=== PATIENT | female | born 1950 | race Caucasian/White ===

== ENCOUNTER 2017-09-05 11:59 | Emergency (ER) | payer MEDICARE ==
[2017-09-05 12:33] LABS: BASOPHILS 0.2 % (0-2); EOSINOPHILS 1.9 % (0-7); HEMATOCRIT 42.5 % (36.0-48.0); HEMOGLOBIN 13.9 g/dL (12-16); IMMATURE GRANULOCYTES 0.2 % (0-5); LYMPHOCYTES 24.2 % (15-50); MCH 29.5 pg (26.0-34.0); MCHC 32.7 g/dL (31.0-37.0); MCV 90.2 fL (80.0-100.0); MEAN PLATELET VOLUME 10.2 fL (7.4-10.4); MONOCYTES 6.2 % (2-11); NEUTROPHILS 67.3 % (40-80); PLATELET COUNT 303 10x3/uL (130-400); RBC 4.71 10x6/uL (4.00-5.40); RDW 13.8 % (11.5-14.5); WBC 8.9 10x3/uL (4.8-10.8)
[2017-09-05 12:55] LABS: ALBUMIN 3.5 g/dL (3.4-5.0); ALKALINE PHOSPHATASE 61 U/L (46-116); ALT (SGPT) 23 U/L (10-68); BILIRUBIN - TOTAL 0.46 mg/dL (0.2-1.3); CALC OSMOLALITY 291 mosm/kg (275-300); CALCIUM 9.3 mg/dL (8.5-10.1); CARBON DIOXIDE 27.5 mmol/L (21.0-32.0); CHLORIDE - SERUM 101 mmol/L (98-107); CREATININE - SERUM 1.1 mg/dL (0.6-1.3); GLUCOSE 378 mg/dL (74-106); POTASSIUM - SERUM 3.9 mmol/L (3.5-5.1); SODIUM 138 mmol/L (136-145); UREA NITROGEN 13 mg/dL (7-18); eGFR NON AFRICAN AMERICAN 52 mL/min (90-120)
[2017-09-05 12:57] LABS: PRO BNP 250 pg/mL (0-125)
[2017-09-05 12:59] LABS: TROPONIN-I < 0.017 ng/mL (0.000-0.060)
== END 2017-09-05 16:31 | disposition home or self-care (01) ==
LOC: D.ER 11:59
PROVIDERS: Family Medicine
DX: J44.1 Chronic obstructive pulmonary disease with (acute) exacerbation (principal); I10 Essential (primary) hypertension; E11.9 Type 2 diabetes mellitus without complications

== ENCOUNTER 2017-12-12 11:07 | Inpatient (IN) | payer MEDICARE, OTHER ==
[~2017-12-12] VITALS: Ht 162.6 cm; Wt 75.9 kg
--- NOTE | ~2017-12-12 | EC ---
PATIENT:BASILIO LEHMAN DATE OF SERVICE: 12/12/17 SEX: F MEDICAL RECORD: [id number] DATE OF : 46 LOCATION:[facility] AGE OF PATIENT: 66 ADMISSION DATE: 12/12/17 REFERRING PHYSICIAN: INTERPRETING PHYSICIAN: JUAREZ CACERES MD ECHOCARDIOGRAM REPORT ECHO CHARGES 4 ECHO COMPLETE Date: 12/13 CLINICAL DIAGNOSIS: R CVA ECHOCARDIOGRAPHIC MEASUREMENTS (adult normal given) AC root (d.<3.7cm) 2.7 cm LV Septum d (<1.2 cm> 1.6 cm Valve Excursion 1.5 cm LV Septum (systole) 1.7 cm Left Atria (s.<4.0cm> 3.1 cm LVPW d(<1.2cm) 1.7 cm RV (d.<2.3cm) 3.2 cm LVPW (sytole) 1.9 cm LV diastole(<5.6CM) 4.9 cm MV E-F(>70mm/sec) cm LV systole 3.1 cm LVOT Diameter cm MV exc.(>10mm) cm Est.ejection fraction (50-75%) % DOPPLER: LVIT cm/sec A 114 cm/sec E 69.0 cm/sec LA cm/sec RVSP 32 mmHg LVOT 160 cm/sec AOP1/2T m/s Asc. Ao 197 cm/sec RVOT cm/sec RA cm/sec PA cm/sec AV Gradient Peak 15.45mmHg AV Mean 9.82 mmHg AV Area 2.0 cm MV Gradient Peak 5.52 mmHg MV Mean 2.41 mmHg MV Area cm COMMENTS: Senior Php Developer: Tere GALEANA Clinical Social Work Therapist: 1 Dr. Caceres TAPE# PACS Pericardial Effusion N DATE OF SERVICE: PROCEDURE: Echocardiogram. FINDINGS: 1. Left ventricle chamber size is within normal limits. Left ventricular systolic function is normal. Overall ejection fraction estimated at 60%. 2. Left atrium, right atrium, and right ventricle chamber sizes are within normal limits. 3. Valvular structures have normal structure and motion. ECHOCARDIOGRAM REPORT [id number] BASILIO LEHMAN 4. Doppler interrogation reveals mild tricuspid regurgitation, no other valvular insufficiency or stenosis and pulmonary systolic pressure is normal estimated 32 mmHg. 5. No evidence of pericardial effusion or left ventricular thrombus. TRANSINT:[id number] Voice Confirmation ID: [id number] DOCUMENT ID: [id number] JUAREZ CACERES MD at 1351 CC: [id number] DICTATION DATE: 12/14/17 1126 RESTAURANT COOK: 12/14/17 1352 DIS IN 12/14/17 [facility] [address] [place] [address]
--- NOTE | ~2017-12-12 | HP ---
PATIENT: BASILIO LEHMAN MEDICAL RECORD: [id number] ACCOUNT: [id number] LOCATION:[facility] : 46 ADMISSION DATE: 12/12/17 HISTORY AND PHYSICAL EXAMINATION DATE OF ADMISSION: 12/17/2017. CHIEF COMPLAINT: Left-sided weakness. HISTORY OF PRESENT ILLNESS: The patient is a 66-year-old female who states she was at home yesterday when she fell 5 times. She feels like she may have hurt her low back. She denies any trauma. She does have some weakness in the left upper arm as well. PAST MEDICAL HISTORY: Significant that she has had diabetes mellitus. She has also had depression. She had breast cancer, has had diabetes mellitus and hypertension. MEDICATIONS: Include aspirin 325 mg once a day, Cartia 240 mg once a day, Coreg 25 p.o. b.i.d., glipizide 10 mg p.o. every day, hydrochlorothiazide 12.5 once a day, metformin 1000 mg b.i.d. with 500 mg at noon, Mirapex 0.125 p.o. q.h.s., ranitidine 150 mg b.i.d. ALLERGIES: DARVOCET, MOTRIN, TETANUS, TUBERCULIN. FAMILY HISTORY: Mother had lung cancer as well as father having lung cancer. Sister, breast cancer. Father had arteriosclerotic heart disease. 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 She stopped smoking 1 year ago. REVIEW OF SYSTEMS: CONSTITUTIONAL: She denies any headaches, seizure or syncope. HEENT: She denies change in vision or auditory acuity. PULMONARY: shortness of breath, cough, congestion, history of bronchitis. CARDIOVASCULAR: No chest pain, palpitation, PND, or orthopnea. GASTROINTESTINAL: No chronic nausea, vomiting, melena, or hematochezia. GENITOURINARY: No urgency, frequency, or dysuria. PHYSICAL EXAMINATION: VITAL SIGNS: Today, her weight is 163. Her blood pressure is 126/68, pulse 64, respirations 12, temperature is 97. HEENT: Head is normocephalic. No lesions. Ears: TMs clear. Eyes: Pupils equal, round and react to light. Extraocular movements are intact. Her nasal cavity, oral cavity, oropharynx clear. NECK: Supple. There is no adenopathy. HEART: Has a regular rate. LUNGS: Clear. ABDOMEN: Soft. The bowel sounds are positive. NEUROLOGIC: The patient does have some left-sided facial weakness with some decreased muscle strength in the left upper extremity. She does have difficulty with tandem gait, [id number] is somewhat uncoordinated on the left. ASSESSMENT: 1. Probable right CVA. HISTORY AND PHYSICAL [id number] BASILIO LEHMAN 2. History of diabetes, hypertension, hyperlipidemia, history of breast cancer. PLAN: The patient will be admitted. She will have a cranial CT without contrast, also an echocardiogram as well as carotid Doppler. The patient will be placed on Plavix 75 mg once a day. Continue to evaluate. TRANSINT:[id number] Voice Confirmation ID: [id number] DOCUMENT ID: [id number] THU ARZOLA MD at 0643 CC: [id number] DICTATION DATE: 12/12/17 1201 RESTAURANT HOSPITALITY MANAGER: 12/12/17 1220 ADM IN [place] [id number] [place] [id number]
--- NOTE | ~2017-12-12 | DS ---
PATIENT:BASILIO LEHMAN :46 MEDICAL RECORD: [id number] DISCHARGE SUMMARY ADMISSION DATE: 12/12/17 DISCHARGE DATE: 12/14/17 DATE OF ADMISSION: 12/12/2017 DATE OF DISCHARGE: 12/14/2017 CONDITION ON DISCHARGE: Stable. ADMITTING DIAGNOSES: 1. Probable right cerebrovascular accident. 2. History of hypertension. 3. Hyperlipidemia. 4. Breast cancer. 5. History of diabetes mellitus. DISCHARGE DIAGNOSES: Malignant brain neoplasm, hypertension, type 2 diabetes, history of breast cancer with bilateral mastectomy. CONSULTANTS: Dr. Maurizio Sandoval. HISTORY OF PRESENT ILLNESS: The patient is a 67-year-old female. The patient presented to my office. She stated that she had fallen 5 times at home on the day prior to her admission, she complained of some low back pain. PHYSICAL EXAMINATION: VITAL SIGNS: She was afebrile, vital signs stable. HEENT: Unremarkable. NECK: Supple. There is no adenopathy. HEART: Regular. LUNGS: Clear. The patient did have some weakness in the left upper extremity as well as left lower extremity, it was felt the patient may have had a TIA or CVA. The patient was therefore admitted. CT scan of the head did not reveal a CVA but did reveal multiple indeterminate intracranial lesions versus infection or abscess. She had an MRI of the brain, MRI of the brain revealed a rim-enhancing lesion of the right basal ganglia as well as a right frontal lobe. They were indeterminate but worrisome for metastatic disease. She has subtle enhancement in the left aspect of the corpus callosum on the frontal lobe white matter. Chest CT scan revealed no evidence of malignancy or masses. Abdominopelvic CT scan unremarkable. Chest x-ray was unremarkable. She was seen in consultation by Dr. Najera, her oncologist as well as Dr. Sandoval. Dr. Sandoval felt that the patient felt the patient could be discharged home, therefore bringing her back so that she might undergo a craniotomy to determine further treatment. She was placed on Decadron to decrease some of the intracranial edema. Therefore, on 12/14/2017, she was discharged. DISCHARGE MEDICATIONS: Include hydrochlorothiazide 12.5 once a day, aspirin 81 mg once a day, Tiazac 240 mg once a day, metformin 1000 mg b.i.d. and 500 mg at noon, Mirapex 0.125 p.o. bedtime, Zantac 150 mg b.i.d., Coreg 12.5 mg p.o. b.i.d., Medrol Dosepak. FOLLOWUP: She was to follow up with me on December 26, she was also to follow up DISCHARGE SUMMARY REPORT [id number] BASILIO LEHMAN with Dr. Sandoval within 10 days. TRANSINT:[id number] Voice Confirmation ID: [id number] DOCUMENT ID: [id number] THU ARZOLA MD at 0701 CC: [id number] DICTATION DATE: 01/22/18 1520 ADVERTISEMENT COMPOSITOR: 01/22/18 2352 DIS IN 12/14/17 [place] [id number] [place] [id number]
[2017-12-12 12:16] LABS: ALBUMIN 3.9 g/dL (3.4-5.0); ANION GAP 13.9 mmol/L (8-16); BILIRUBIN - TOTAL 0.59 mg/dL (0.2-1.3); CALCIUM 9.2 mg/dL (8.5-10.1); CARBON DIOXIDE 25.2 mmol/L (21.0-32.0); POTASSIUM - SERUM 4.1 mmol/L (3.5-5.1); PROTEIN - SERUM 7.5 g/dL (6.4-8.2)
[2017-12-12 12:26] LABS: BASOPHILS 0.4 % (0-2); EOSINOPHILS 2.1 % (0-7); HEMATOCRIT 41.9 % (36.0-48.0); IMMATURE GRANULOCYTES 0.3 % (0-5); LYMPHOCYTES 35.4 % (15-50); MCHC 33.4 g/dL (31.0-37.0); MCV 89.9 fL (80.0-100.0); MEAN PLATELET VOLUME 10.9 fL (7.4-10.4); MONOCYTES 6.8 % (2-11); PLATELET COUNT 292 10x3/uL (130-400); RBC 4.66 10x6/uL (4.00-5.40); RDW 13.9 % (11.5-14.5); WBC 7.7 10x3/uL (4.8-10.8)
[2017-12-12 12:36] LABS: INR 0.95 (0.85-1.17); PROTIME 12.3 SECONDS (11.6-15.0)
[2017-12-12 12:50] LABS: APPEARANCE HAZY (CLEAR); BACTERIA MANY /hpf (NONE SEEN); BILIRUBIN NEGATIVE (NEGATIVE); COLOR DK YELLOW (YELLOW); GLUCOSE NEGATIVE (NEGATIVE); KETONE NEGATIVE (NEGATIVE); MUCUS <1+ /lpf (NONE SEEN); NITRITE NEGATIVE (NEGATIVE); PROTEIN NEGATIVE (NEGATIVE); SPECIFIC GRAVITY 1.025 (1.005-1.020); UROBILINOGEN NORMAL (NORMAL); WAXY CAST 0-5 /lpf (NONE SEEN)
[2017-12-12] MEDS ORDERED: HYDROCHLOROTH12.5 M1 PO (17:29)
[2017-12-12] MEDS ORDERED: TIAZAC/CARDIZE240 M1 PO (17:30)
[2017-12-12] MEDS ORDERED: BAYER CHEWABLE81 MG PO (17:30)
[2017-12-12] MEDS ORDERED: GLUCOPHAGE500 MG PO (17:31)
[2017-12-12] MEDS ORDERED: MIRAPEX0.125 MG PO (17:31)
[2017-12-12] MEDS ORDERED: GLUCOPHAGE1000 MG PO (17:31)
[2017-12-12] MEDS ORDERED: ZANTAC150 MG PO (17:32)
[2017-12-12] MEDS ORDERED: COREG12.5 MG PO (17:32)
[2017-12-12] MEDS ORDERED: CALCIUM 600 +1 EAC3 PO (17:33)
[2017-12-12] MEDS ORDERED: VITAMIN D31000 UNIT PO (17:33)
[2017-12-12 20:00] VITALS: BP 118/59
[2017-12-13 04:00] VITALS: BP 112/73
[2017-12-13 06:02] LABS: BASOPHILS 0.5 % (0-2); EOSINOPHILS 0.5 % (0-7); HEMATOCRIT 40.5 % (36.0-48.0); HEMOGLOBIN 13.2 g/dL (12-16); IMMATURE GRANULOCYTES 0.2 % (0-5); LYMPHOCYTES 22.5 % (15-50); MCHC 32.6 g/dL (31.0-37.0); MEAN PLATELET VOLUME 10.7 fL (7.4-10.4); MONOCYTES 2.7 % (2-11); NEUTROPHILS 73.6 % (40-80); PLATELET COUNT 255 10x3/uL (130-400); RBC 4.55 10x6/uL (4.00-5.40); RDW 13.8 % (11.5-14.5)
[2017-12-13 06:13] LABS: WBC 5.6 10x3/uL (4.8-10.8)
[2017-12-13 06:40] LABS: ALBUMIN 3.5 g/dL (3.4-5.0); ANION GAP 14.1 mmol/L (8-16); BILIRUBIN - TOTAL 0.4 mg/dL (0.2-1.3); CALCIUM 9.1 mg/dL (8.5-10.1); CARBON DIOXIDE 24.8 mmol/L (21.0-32.0); POTASSIUM - SERUM 3.9 mmol/L (3.5-5.1); PROTEIN - SERUM 6.7 g/dL (6.4-8.2)
[2017-12-13 09:15] VITALS: BP 122/80; BP 131/77
[2017-12-13 13:24] VITALS: BMI 28.6
[2017-12-13 17:06] VITALS: BP 141/59
[2017-12-13 20:00] VITALS: BP 122/74
[2017-12-14 04:00] VITALS: BP 122/51
[2017-12-14 05:35] LABS: BASOPHILS 0 % (0-2); EOSINOPHILS 0 % (0-7); HEMATOCRIT 38.2 % (36.0-48.0); HEMOGLOBIN 12.6 g/dL (12-16); IMMATURE GRANULOCYTES 0.2 % (0-5); LYMPHOCYTES 10.1 % (15-50); MCH 29.4 pg (26.0-34.0); MEAN PLATELET VOLUME 10.7 fL (7.4-10.4); MONOCYTES 2.1 % (2-11); NEUTROPHILS 87.6 % (40-80); PLATELET COUNT 263 10x3/uL (130-400); RBC 4.29 10x6/uL (4.00-5.40)
[2017-12-14 05:48] LABS: WBC 10.1 10x3/uL (4.8-10.8)
[2017-12-14 06:37] VITALS: BP 122/74; Ht 162.6 cm; Wt 75.9 kg
[2017-12-14 06:52] LABS: ALBUMIN 3.3 g/dL (3.4-5.0); BILIRUBIN - TOTAL 0.23 mg/dL (0.2-1.3); CALCIUM 9.3 mg/dL (8.5-10.1); CARBON DIOXIDE 23.5 mmol/L (21.0-32.0); CREATININE - SERUM 1.1 mg/dL (0.6-1.3); PROTEIN - SERUM 6.7 g/dL (6.4-8.2)
[2017-12-14 07:35] LABS: ANION GAP 13.6 mmol/L (8-16); POTASSIUM - SERUM 4.1 mmol/L (3.5-5.1)
[2017-12-14 08:50] LABS: APPEARANCE CLEAR (CLEAR); BILIRUBIN NEGATIVE (NEGATIVE); COLOR STRAW (YELLOW); GLUCOSE 1000 mg/dL (NEGATIVE); KETONE NEGATIVE (NEGATIVE); NITRITE NEGATIVE (NEGATIVE); PROTEIN NEGATIVE (NEGATIVE); UROBILINOGEN NORMAL (NORMAL)
[2017-12-14 09:30] VITALS: BP 140/66
[2017-12-14 10:22] LABS: CA 15-3 11.5 U/mL (0.0-25.0); CEA 3.8 ng/mL (0.0-4.7)
[2017-12-14] MEDS ORDERED: MEDROL DOSE PACK4 MG PO (10:44)
[2017-12-14 12:25] VITALS: BP 121/57
== END 2017-12-14 13:20 | disposition home or self-care (01) | DRG 55 ==
LOC: D.ER 11:07 → D.MS 13:00 → D.EDHOLD 13:00 → D.MS 15:59
PROVIDERS: Emergency Medicine; Family Medicine; Internal Medicine Hematology & Oncology
DX: C79.31 Secondary malignant neoplasm of brain (principal); Z85.3 Personal history of malignant neoplasm of breast; R53.1 Weakness; I10 Essential (primary) hypertension; E11.9 Type 2 diabetes mellitus without complications

== ENCOUNTER 2017-12-15 19:43 | Emergency (ER) | payer MEDICARE, OTHER ==
[2017-12-14 06:37] VITALS: BMI 28.7
[~2017-12-15 19:43] MED LIST: BAYER CHEWABLE81 MG PO; CALCIUM 600 +1 EAC3 PO; COREG12.5 MG PO; GLUCOPHAGE1000 MG PO; GLUCOPHAGE500 MG PO; HYDROCHLOROTH12.5 M1 PO; MEDROL DOSE PACK4 MG PO; MIRAPEX0.125 MG PO; TIAZAC/CARDIZE240 M1 PO; VITAMIN D31000 UNIT PO; ZANTAC150 MG PO
[2017-12-15 21:10] LABS: BASOPHILS 0 % (0-2); EOSINOPHILS 0 % (0-7); HEMATOCRIT 39.8 % (36.0-48.0); HEMOGLOBIN 13.2 g/dL (12-16); IMMATURE GRANULOCYTES 0.4 % (0-5); LYMPHOCYTES 13.6 % (15-50); MCH 29.8 pg (26.0-34.0); MCHC 33.2 g/dL (31.0-37.0); MCV 89.8 fL (80.0-100.0); MEAN PLATELET VOLUME 10.6 fL (7.4-10.4); MONOCYTES 7.1 % (2-11); NEUTROPHILS 78.9 % (40-80); PLATELET COUNT 277 10x3/uL (130-400); RBC 4.43 10x6/uL (4.00-5.40); RDW 13.9 % (11.5-14.5); WBC 12.2 10x3/uL (4.8-10.8)
[2017-12-15 21:16] LABS: KETONE - SERUM NEGATIVE (NEGATIVE)
[2017-12-15 21:24] LABS: ALBUMIN 3.7 g/dL (3.4-5.0); ALKALINE PHOSPHATASE 50 U/L (46-116); ALT (SGPT) 28 U/L (10-68); BILIRUBIN - TOTAL 0.25 mg/dL (0.2-1.3); CALCIUM 9.4 mg/dL (8.5-10.1); CARBON DIOXIDE 26.7 mmol/L (21.0-32.0); CHLORIDE - SERUM 97 mmol/L (98-107); GLUCOSE 319 mg/dL (74-106); PROTEIN - SERUM 7.2 g/dL (6.4-8.2); SODIUM 135 mmol/L (136-145); eGFR NON AFRICAN AMERICAN 40 mL/min (90-120)
[2017-12-15 21:27] LABS: CALC OSMOLALITY 288 mosm/kg (275-300); CREATININE - SERUM 1.4 mg/dL (0.6-1.3); UREA NITROGEN 32 mg/dL (7-18)
[2017-12-15 23:29] LABS: APPEARANCE CLEAR (CLEAR); COLOR YELLOW (YELLOW); GLUCOSE NEGATIVE (NEGATIVE); NITRITE NEGATIVE (NEGATIVE); PROTEIN NEGATIVE (NEGATIVE); SPECIFIC GRAVITY 1.015 (1.005-1.020)
[2017-12-15 23:30] LABS: BILIRUBIN NEGATIVE (NEGATIVE); KETONE NEGATIVE (NEGATIVE); UROBILINOGEN NORMAL (NORMAL)
== END 2017-12-16 01:15 | disposition home or self-care (01) ==
LOC: D.ER 19:43
PROVIDERS: Emergency Medicine
DX: E11.65 Type 2 diabetes mellitus with hyperglycemia (principal); R53.1 Weakness; I10 Essential (primary) hypertension; J44.9 Chronic obstructive pulmonary disease, unspecified; Z85.841 Personal history of malignant neoplasm of brain; F17.200 Nicotine dependence, unspecified, uncomplicated

== ENCOUNTER 2017-12-18 21:26 | Emergency (ER) | payer MEDICARE, OTHER ==
[2017-12-14 06:37] VITALS: BMI 28.7
[2017-12-18 22:07] LABS: APPEARANCE CLEAR (CLEAR); COLOR YELLOW (YELLOW); GLUCOSE 500 mg/dL (NEGATIVE); NITRITE NEGATIVE (NEGATIVE); PROTEIN NEGATIVE (NEGATIVE); SPECIFIC GRAVITY 1.015 (1.005-1.020)
[2017-12-18 22:08] LABS: BILIRUBIN NEGATIVE (NEGATIVE); KETONE NEGATIVE (NEGATIVE); UROBILINOGEN NORMAL (NORMAL)
== END 2017-12-18 23:40 | disposition home or self-care (01) ==
LOC: D.ER 21:26
PROVIDERS: Family Medicine
DX: E11.65 Type 2 diabetes mellitus with hyperglycemia (principal); I10 Essential (primary) hypertension; Z91.19 Patient's noncompliance with other medical treatment and regimen; J44.9 Chronic obstructive pulmonary disease, unspecified; Z85.841 Personal history of malignant neoplasm of brain; Z86.73 Personal history of transient ischemic attack (TIA), and cerebral infarction without residual deficits

== ENCOUNTER 2017-12-19 07:07 | Inpatient (IN) | payer MEDICARE, OTHER ==
[~2017-12-19] VITALS: Ht 162.6 cm; Wt 73.8 kg
[2017-12-19] VITALS (9 sets, daily range): BP systolic 119–155; BP diastolic 56–98; BMI 27.8
--- NOTE | ~2017-12-19 | OP ---
PATIENT NAME: BASILIO LEHMAN MEDICAL RECORD: [id number] :46 LOCATION:[facility] D.2306 ADMISSION DATE:12/19/17 SURGEON: BABAR SANDOVAL MD DATE OF OPERATION: 01/03/2018 SURGEON: Babar Sandoval MD PROCEDURE: Cranioplasty, right frontotemporal skull defect. DESCRIPTION AND TECHNIQUE: After induction of general anesthesia, the patient's scalp was prepped and draped in usual sterile fashion. The kerri were removed with a hemostat. The scalp incision was incised with Metzenbaum scissors. The temporalis muscle was also opened in the same fashion. The dura was opened and the brain appeared pulsatile and nonedematous. It was gently irrigated with lukewarm saline irrigant solution. A titanium plate and screw was used to cover the skull defect. These were anchored in place with a Midas-Abad drill and self-drilling screws. Following this, the contour of the skull was recreated in a natural fashion. Meticulous hemostasis was maintained throughout the wound. The wound was irrigated with copious amounts of lukewarm saline irrigant solution. The galea and temporalis fascia were closed with interrupted 2-0 Vicryl suture. The skin was closed with kerri. A sterile dressing was applied to the wound. The patient appeared to tolerate the procedure well, was taken back to ICU in stable condition. TRANSINT:[id number] Voice Confirmation ID: [id number] DOCUMENT ID: [id number] BABAR SANDOVAL MD at 1510 CC: [id number] DICTATION DATE: 01/09/182129 PRESSURIZATION MECHANIC: 01/10/18 0515 ADM IN [place] [id number] [place] [address]
--- NOTE | ~2017-12-19 | CN ---
PATIENT NAME:BASILIO LEHMAN MEDICAL RECORD: [id number] : 46 LOCATION:[facility]CV08 ADMIT DATE: 12/19/17 ACCOUNT: [id number] CONSULTING PHYSICIAN: THU ARZOLA MD REFERRING PHYSICIAN: BABAR SANDOVAL MD DATE OF CONSULTATION: 12/19/2017 DATE OF ADMISSION: 12/19/2017 CHIEF COMPLAINT: Confusion. HISTORY OF PRESENT ILLNESS: The patient is a 66-year-old female who was hospitalized last week. She had had confusion. She was found to have what appeared to be 3 brain mets. She had oncology consultation as well as neurosurgery consultation. It was felt the patient could return earlier this coming week for a craniotomy. The patient presents early with her son, apparently has become more combative, more confused, felt the patient should be admitted. PAST MEDICAL HISTORY: Significant that she has had bilateral breast CA. She had recently had CT scan of the chest and abdomen showing no primary source. She has also had a history of having diabetes mellitus and hypertension. PAST SURGICAL HISTORY: She has had a hysterectomy, mastectomy, cataract surgery in 2013 on the left eye and 2015 on the right eye. She had a tummy tuck in 1995, breast reconstruction in 1995. FAMILY HISTORY: Father had hypertension. Father had coronary artery disease. Breast cancer in sister. Mother had malignant neoplasm of the lung. MEDICATIONS: Aspirin 325 mg once a day, calcium 500 mg 2 tablets once a day, Cartia 240 once a day, carvedilol 25 b.i.d., Combivent 2 puffs q.4 hours p.r.n. shortness of breath, glipizide 10 mg once a day, metformin 1000 mg b.i.d. and 500 at noon, Mirapex 0.125 p.o. at bedtime, Zantac 150 mg b.i.d., HCTZ 12.5 once a day. The patient also placed on Medrol Dosepak. ALLERGIES: SHE HAS ALLERGIES TO DARVOCET, MOTRIN, TETANUS, AND TUBERCULIN. SOCIAL HISTORY: The patient is a former smoker, been a 1 pack per day smoker, has not smoked in many years. 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 REVIEW OF SYSTEMS: CONSTITUTIONAL: The patient does report headache. She reports confusion. She reports no nausea or vomiting. She has had some visual hallucinations as well as auditory hallucinations. PULMONARY: She denies any shortness of breath, cough, congestion, history of TB, asthma, or bronchitis. CARDIOVASCULAR: No chest pain, palpitation, PND, or orthopnea. GASTROINTESTINAL: No chronic nausea, vomiting, melena, or hematochezia. GENITOURINARY: No urgency, frequency, or dysuria. PHYSICAL EXAMINATION: VITAL SIGNS: The patient's temperature was 98.6, pulse of 53, respirations 20, her blood pressure 155/64. GENERAL: She is alert. She is oriented times 3. CONSULT REPORT [id number] BASILIO LEHMAN: Head is normocephalic. No lesions. Ears: TMs clear. Eyes: Pupils equal, round, reactive to light. Her extraocular movements are intact. Her nasal cavity, oral cavity, and oropharynx clear. NECK: Supple. There is no adenopathy. HEART: Regular rate without murmurs, gallops, or rubs. LUNGS: Clear. ABDOMEN: Soft, nontender. EXTREMITIES: Lower extremities have no edema. The patient still has some left-sided weakness in the left arm and left leg, some facial weakness as well. LABORATORY DATA: White count 11.1, hemoglobin 14.2, hematocrit 41.3, and her platelets are 274. Urinalysis was unremarkable. Glucose 248, BUN is 23, creatinine is 1.0. Sodium 138, potassium 4.5, chloride 101. Liver functions normal. ASSESSMENT: 1. Brain lesions, possible mets. 2. Diabetes mellitus. 3. Hypertension. 4. History of breast cancer. PLAN: The patient is admitted for a craniotomy tomorrow by Dr. Sandoval. We will continue all her current medications. We will have her on Humalog sliding scale, continue to follow. Thank you for the consultation. TRANSINT:[id number] Voice Confirmation ID: [id number] DOCUMENT ID: [id number] THU ARZOLA MD at 0639 CC: [id number] DICTATION DATE: 12/19/17 185 TOLL TEST DESK WORKER: 12/20/17 0209 ADM IN [place] [id number] [place] [address]
--- NOTE | ~2017-12-19 | CN ---
PATIENT NAME:BASILIO OCHOA MEDICAL RECORD: [id number] : 46 LOCATION:[facility]07 ADMIT DATE: 12/19/17 ACCOUNT: [id number] CONSULTING PHYSICIAN: SULEMA ABBOTT MD REFERRING PHYSICIAN: BABAR ORTIZ MD DATE OF CONSULTATION: 12/21/2017 CONSULT REQUESTING PHYSICIAN: Dr. Ortiz. REASON FOR CONSULTATION: Vent management. HISTORY OF PRESENT ILLNESS: Ms. Ochoa is a 66-year-old female who was admitted with acute confusion and agitation. The patient recently diagnosed with a brain lesion, possible metastatic. The patient underwent craniotomy yesterday. This morning, the patient had a dense left hemiparesis as well as the CT scan confirmed hematoma. The patient was taken to the OR and the hematoma was evacuated. Now the patient is back to the ICU on the ventilator. The history was taken mainly by reviewing the patient's note and talking to the nursing staff. REVIEW OF SYSTEMS: As in history of present illness. PAST MEDICAL HISTORY: 1. Bilateral breast carcinoma. She had a negative CT of the abdomen and chest recently. 2. Diabetes mellitus. 3. Hypertension. PAST SURGICAL HISTORY: 1. Now, she is status post craniotomy. 2. History of hysterectomy. 3. Mastectomy. 4. Cataract surgery. 5. Tummy tuck in 1995. 6. Breast reconstruction surgery in 1995. ALLERGIES: She is allergic to DARVOCET, MOTRIN, TETANUS, and TUBERCULIN. PRESENT MEDICATIONS: Quboletech is reviewed. PERSONAL AND SOCIAL HISTORY: The patient is an ex-smoker. She is a nondrinker. FAMILY HISTORY: Noncontributory. PHYSICAL EXAMINATION: GENERAL: Now, the patient is orally intubated and sedated. VITAL SIGNS: The blood pressure is 154/110, pulse is 78, respiration 22, temperature 99.3, SPO2 is 97% on assist control mechanical ventilation. HEENT: Conjunctivae are pink. Sclerae are not icteric. NECK: Supple, no JVD. CHEST: Excursion is minimal on both sides. There is no wheeze, no rales. HEART: Rhythm regular, normal sound, no murmur. ABDOMEN: Soft, bowel sounds present. No hepatosplenomegaly. RECTAL: Deferred. EXTREMITIES: No cyanosis, no clubbing, no pedal edema. CONSULT REPORT [id number] BASILIO OCHOA SKIN: Warm, normal turgor. CENTRAL NERVOUS SYSTEM: The patient is orally intubated and sedated. She has dressing on her scalp. LABORATORY DATA: CBC: WBC 15,000, hemoglobin 12.8, hematocrit 38.6, the platelet count 230. Chemistry 145, potassium is 3, BUN is 23, creatinine 0.9. ABG: The pH is 7.41, pCO2 of 43, pO2 is 80, bicarbonate is 27.9. IMPRESSION: 1. Acute respiratory failure post-procedure status post craniotomy, evacuation of the hematoma. 2. Left hemiparesis secondary to the hematoma and midline shift. 3. Brain metastasis, possibly breast carcinoma. There were no lesions seen on the recent CT of abdomen and CT chest. 4. Leukocytosis. 5. Old granulomatous disease on the CT scan of the chest. 6. Hypokalemia. RECOMMENDATION: 1. We will continue mechanical ventilation, adjust the setting. 2. GI bleed and stress ulcer prevention. 3. DVT prophylaxis by using SCD. 4. Follow up labs and chest radiograph. Dr. Ortiz, thank you for involving me in the care of Ms. Ochoa. The critical care time was 45 minutes. TRANSINT:[id number] Voice Confirmation ID: [id number] DOCUMENT ID: [id number] SULEMA ABBOTT MD at 1208 CC: BABAR ORTIZ [id number] DICTATION DATE: 12/21/17 1218 SUPERVISOR CONCRETE STONE FINISHING: 12/21/17 1323 ADM IN [facility] [address] [place] [id number]
--- NOTE | ~2017-12-19 | OP ---
PATIENT NAME: BASILIO LEHMAN MEDICAL RECORD: [id number] :46 LOCATION:[facility] D.2306 ADMISSION DATE:12/19/17 SURGEON: BABAR SANDOVAL MD DATE OF OPERATION: 12/21/2017 PROCEDURE: Emergency evacuation of intracranial hematoma, status post craniotomy. PREOPERATIVE DIAGNOSIS: Postoperative intracranial hemorrhage. POSTOPERATIVE DIAGNOSIS: Postoperative intracranial hemorrhage. SURGEON: Babar Sandoval MD DESCRIPTION OF TECHNIQUE: After induction of general endotracheal anesthesia, the patient's scalp was prepped and draped in usual sterile fashion. The kerri were removed from the incision. The scalp was opened with a pair of Metzenbaum scissors and then running clips were applied for hemostasis. The prior titanium plates were unscrewed from the skull at the perimeter. The skull flap was removed. The dura was opened by incising the previous Nurolon sutures. The brain appeared to be tense with edematous gyri. The gentle dissection took place with irrigation and suctioned into the operative field over the right temporal and the sylvian fissure. The operative cavity was entered and there was found to be acute hemorrhage within the cavity. Several small bleeders were cauterized with bipolar cautery. The clot was evacuated with gentle suction and irrigation until the brain was decompressed well and pulsatile. Due to concerns for further swelling and edema, the bone flap was left out. The dura was left open. A drain was placed deep to the resection cavity. The galea was reapproximated with interrupted 2-0 Vicryl suture. The skin was closed with kerri. A sterile dressing was applied to the wound. The patient was awakened in stable condition and sent to the ICU on a ventilator. All counts were reported as correct. Estimated blood loss was 100 cc. TRANSINT:[id number] Voice Confirmation ID: [id number] DOCUMENT ID: [id number] BABAR SANDOVAL MD at 1832 CC: [id number] DICTATION DATE: 01/09/182127 CLOTHES PRESSER: 01/10/18 [address] [facility] [address] [place] [id number]
--- NOTE | ~2017-12-19 | OP ---
PATIENT NAME: BASILIO LEHMAN MEDICAL RECORD: [id number] :46 LOCATION:[facility] D.CV07 ADMISSION DATE:12/19/17 SURGEON: BABAR SANDOVAL MD DATE OF OPERATION: 12/20/2017 PREOPERATIVE DIAGNOSES: 1. Right posterior frontal mesial metastatic breast carcinoma tumor. 2. Right posterior temporal metastatic breast carcinoma. PROCEDURE: 1. Right posterior frontal craniotomy for tumor resection with stereotactic navigation and intraoperative monitoring. 2. Right posterior temporal craniotomy for resection of metastatic breast carcinoma with navigation. SURGEON: Babar Sandoval MD DESCRIPTION AND TECHNIQUE: After induction of general endotracheal anesthesia, registration took place with the [employer] navigation system for planning of 2 separate craniotomy scalp incisions and skull flaps. The right posterior frontal scalp flap and skull flap were planned with a sterotactic navigation and then separately a right posterior temporal scalp incision and skull flap were planned with sterotactic navigation. After sterile prep and drape of both areas, attention was first turned to the right posterior temporal area. A scalp incision was carried out with #10 blade. Prior to this, the scalp was infiltrated with 1:100,000 epinephrine with 1% lidocaine. Itzel clips were applied to the scalp for hemostasis. Several simon holes were created at the perimeter of the skull exposure. These were connected with a Midas-Abad drill with a side cutting bur with a foot plate attachment. The skull flap was elevated from the dura without difficulty. Next, the tumor resection site was found to be well centered within the dural exposure. The dura was opened in a cruciate manner with bipolar cautery and 11 blade. The sylvian fissure was identified. Arachnoid dissection took place through the posterior portion of the right sylvian fissure with sterotactic navigation assistance. The inflow was encountered. The tumor was approximately 3 mm deep to the surface of the insula. The katie over the insula, small section of less than a centimeter, was cauterized with bipolar cautery and then entered with a #11 blade. Gentle suction and bipolar cautery dissection took place down to the capsule of the tumor. The central portion of the tumor was entered and there was evacuation of cystic-like fluid. Under microscopic illumination CUSA used to remove the inner portion of the tumor and the perimeter was dissected free from the surrounding brain with bipolar cautery and microscopic illumination and microscissors. Following this, there appeared to be a gross total resection of the tumor. This was sent to pathology for frozen and permanent section. Frozen section was reported as consistent with carcinoma. It appeared to be a gross total resection of the tumor just medial to the insula. Next, the area was closed with interrupted 4-0 Nurolon suture. The skull flap was replaced with titanium plates and screws. The galea was reapproximated with interrupted 3-0 Vicryl suture. The skin was closed with kerri. Next, a separate scalp flap incision was made over the right posterior frontal area just off the midline. Itzel clips were applied to the scalp for hemostasis. Several bur holes were created around the skull exposure, 2 off the midline. Skull flap was elevated without difficulty. The dura exposure was well centered over the tumor with navigation. Next, the dura was opened in a horseshoe type fashion with the flap based on the midline. The dura was reflected medially. There was obvious tumor on the OPERATIVE REPORT [id number] BASILIO LEHMAN surface of the katie. This area was cauterized with bipolar cautery. Using CUSA aspirator the central portion of the tumor was removed and then a dissection plane was developed between the tumor and the surrounding brain. These portions were sent to pathology for diagnosis. There appeared to be a gross total resection of this portion of tumor. Meticulous hemostasis was maintained throughout the wounds. Wound was irrigated with lukewarm saline irrigant solution. The dura was reapproximated with interrupted 4-0 Nurolon suture. The skull flap was replaced with titanium plates and screws. The galea was reapproximated with interrupted 3-0 Vicryl suture, skin closed with kerri. Sterile dressing was applied to both wounds. The patient was awakened in stable condition and taken to recovery. All counts were reported as correct. Estimated blood loss was 100 cc. TRANSINT:[id number] Voice Confirmation ID: [id number] DOCUMENT ID: [id number] BABAR SANDOVAL MD at 1625 CC: [id number] DICTATION DATE: 01/04/18929 SETTER OUT: 01/04/18 1255 ADM IN [place] [id number] [place] [address]
--- NOTE | ~2017-12-19 | OP ---
PATIENT NAME: BASILIO LEHMAN MEDICAL RECORD: [id number] :46 LOCATION:.[facility] [id number] ADMISSION DATE:12/19/17 SURGEON: CLINT LAUREN MD DATE OF OPERATION: 12/30/2017 PREOPERATIVE DIAGNOSES: 1. Brain tumor, status post craniotomy. 2. Respiratory failure on the ventilator. POSTOPERATIVE DIAGNOSES: 1. Brain tumor, status post craniotomy. 2. Respiratory failure on the ventilator. PROCEDURE: 1. An 8-Greenlandic percutaneous tracheostomy placement. 2. PEG tube placement. SURGEON: Clint Lauren MD REPORT OF PROCEDURE: The patient's neck was prepped and draped in sterile fashion and a bronchoscope was advanced through the indwelling endotracheal tube. We backed the endotracheal tube up until it was just resting in the proximal portion of the trachea. A skin incision was then made on the patient's neck in the midline. Using digital palpation, I was able to find the cricopharyngeal ring and I went down about 2 tracheal rings. An Angiocath needle was inserted under direct visualization. Through this Angiocath, a wire was placed. Over this wire, a small dilator was placed followed by the large white Rhino dilator. We then followed this up with 8-Greenlandic trach, this trach went into position well. We sutured it down with 2-0 Prolenes and dressed it appropriately. At this point, we advanced an Olympus endoscope down through the mouth and esophagus and into the stomach. The stomach was insufflated and we found an area on the antrum of the stomach to house the PEG tube. The stomach was then prepped and draped. A total of 5 cc of 1% lidocaine was infused into the subcutaneous tissues. An Angiocath needle was used to penetrate the skin and access through to the lumen of the stomach. A wire was advanced through the Angiocath needle and we were able to grasp this with an Endo snare. The wire was pulled out through the patient's mouth and esophagus and affixed to the 20-Greenlandic PEG tube. These were then pulled back through the mouth and esophagus and out the abdominal wall until it rested in good position at 4 cm at the skin. The Olympus endoscope was advanced through the mouth and esophagus and we could see the PEG tube in position with no sign of any active bleeding. At this point, the insufflation was removed and the endoscope was taken out. The PEG tube was affixed to the skin appropriately. COMPLICATIONS: None. CONDITION: Stable. ANESTHESIA: General endotracheal. BLOOD LOSS: Minimal. Procedure done in the CV ICU at the bedside. TRANSINT:[id number] Voice Confirmation ID: [id number] DOCUMENT ID: [id number] OPERATIVE REPORT [id number] BASILIO LEHMAN CHRISTIAN MD at 1031 CC: [id number] DICTATION DATE: 12/30/17 1227 POULTRY HUSBANDMAN: 12/30/17 1648 DIS IN 01/12/18 [facility] [address] [place] [address]
[2017-12-19 07:53] LABS: BASOPHILS 0 % (0-2); EOSINOPHILS 0.1 % (0-7); HEMATOCRIT 41.3 % (36.0-48.0); HEMOGLOBIN 14.2 g/dL (12-16); IMMATURE GRANULOCYTES 0.6 % (0-5); LYMPHOCYTES 17.1 % (15-50); MCH 30.1 pg (26.0-34.0); MCHC 34.4 g/dL (31.0-37.0); MCV 87.5 fL (80.0-100.0); MEAN PLATELET VOLUME 10.9 fL (7.4-10.4); MONOCYTES 7.6 % (2-11); NEUTROPHILS 74.6 % (40-80); PLATELET COUNT 274 10x3/uL (130-400); RBC 4.72 10x6/uL (4.00-5.40); RDW 13.6 % (11.5-14.5); WBC 11.1 10x3/uL (4.8-10.8)
[2017-12-19 08:05] LABS: ALBUMIN 3.7 g/dL (3.4-5.0); ANION GAP 15.1 mmol/L (8-16); BILIRUBIN - TOTAL 0.43 mg/dL (0.2-1.3); CALCIUM 9.6 mg/dL (8.5-10.1); CARBON DIOXIDE 26.4 mmol/L (21.0-32.0); MAGNESIUM - SERUM 2.1 mg/dL (1.8-2.4); POTASSIUM - SERUM 4.5 mmol/L (3.5-5.1); PROTEIN - SERUM 6.9 g/dL (6.4-8.2)
[2017-12-19 09:10] LABS: APPEARANCE HAZY (CLEAR); BILIRUBIN NEGATIVE (NEGATIVE); COLOR YELLOW (YELLOW); GLUCOSE 100 mg/dL (NEGATIVE); KETONE NEGATIVE (NEGATIVE); NITRITE NEGATIVE (NEGATIVE); PROTEIN TRACE mg/dL (NEGATIVE); SPECIFIC GRAVITY 1.015 (1.005-1.020); UROBILINOGEN NORMAL (NORMAL); WHITE CELLS - URINE 0-5 /hpf (0-5)
[2017-12-19 09:11] LABS: BACTERIA MODERATE /hpf (NONE SEEN); EPITHELIAL CELLS 0-5 /hpf (0-5); MUCUS >1+ /lpf (NONE SEEN); RED CELLS - URINE 0-5 /hpf (0-5); UDS - AMPHET NEGATIVE QUAL (NEGATIVE); UDS - BARB NEGATIVE QUAL (NEGATIVE); UDS - BENZO NEGATIVE QUAL (NEGATIVE); UDS - COCAINE NEGATIVE QUAL (NEGATIVE); UDS - OPIATE POSITIVE QUAL (NEGATIVE); UDS - PCP NEGATIVE QUAL (NEGATIVE); UDS - THC NEGATIVE QUAL (NEGATIVE); WAXY CAST RARE /lpf (NONE SEEN)
[2017-12-19 18:10] LABS: APPEARANCE CLEAR (CLEAR); COLOR STRAW (YELLOW)
[2017-12-19 18:11] LABS: BILIRUBIN NEGATIVE (NEGATIVE); GLUCOSE NEGATIVE (NEGATIVE); KETONE NEGATIVE (NEGATIVE); NITRITE NEGATIVE (NEGATIVE); PROTEIN NEGATIVE (NEGATIVE); UROBILINOGEN NORMAL (NORMAL)
[2017-12-20] VITALS (25 sets, daily range): BP systolic 121–209; BP diastolic 59–97; BMI 27.8
[2017-12-20 04:57] LABS: BASOPHILS 0 % (0-2); EOSINOPHILS 0 % (0-7); HEMATOCRIT 44.6 % (36.0-48.0); HEMOGLOBIN 15.1 g/dL (12-16); IMMATURE GRANULOCYTES 0.5 % (0-5); LYMPHOCYTES 8.8 % (15-50); MCH 29.5 pg (26.0-34.0); MCHC 33.9 g/dL (31.0-37.0); MCV 87.1 fL (80.0-100.0); MEAN PLATELET VOLUME 11.1 fL (7.4-10.4); NEUTROPHILS 88.7 % (40-80); PLATELET COUNT 304 10x3/uL (130-400); RBC 5.12 10x6/uL (4.00-5.40); RDW 13.2 % (11.5-14.5); WBC 8.5 10x3/uL (4.8-10.8)
[2017-12-20 05:25] LABS: ALBUMIN 3.8 g/dL (3.4-5.0); ANION GAP 14.1 mmol/L (8-16); BILIRUBIN - TOTAL 0.6 mg/dL (0.2-1.3); CALCIUM 10.1 mg/dL (8.5-10.1); CARBON DIOXIDE 31.5 mmol/L (21.0-32.0); PROTEIN - SERUM 7.6 g/dL (6.4-8.2)
[2017-12-20 05:37] LABS: CREATININE - SERUM 1.3 mg/dL (0.6-1.3); POTASSIUM - SERUM 3.6 mmol/L (3.5-5.1)
[2017-12-20 18:01] LABS: ANION GAP 13.6 mmol/L (8-16); BILIRUBIN - TOTAL 0.4 mg/dL (0.2-1.3); CALCIUM 7.8 mg/dL (8.5-10.1); CARBON DIOXIDE 25.8 mmol/L (21.0-32.0); POTASSIUM - SERUM 3.4 mmol/L (3.5-5.1)
[2017-12-20 18:03] LABS: ALBUMIN 2.7 g/dL (3.4-5.0); CREATININE - SERUM 0.9 mg/dL (0.6-1.3); PROTEIN - SERUM 5.5 g/dL (6.4-8.2)
[2017-12-21] VITALS (26 sets, daily range): BP systolic 103–179; BP diastolic 57–129
[2017-12-21 05:29] LABS: BASOPHILS 0 % (0-2); EOSINOPHILS 0 % (0-7); HEMATOCRIT 38.6 % (36.0-48.0); HEMOGLOBIN 12.8 g/dL (12-16); IMMATURE GRANULOCYTES 0.6 % (0-5); LYMPHOCYTES 5.6 % (15-50); MCH 29.2 pg (26.0-34.0); MCHC 33.2 g/dL (31.0-37.0); MCV 88.1 fL (80.0-100.0); MEAN PLATELET VOLUME 10.4 fL (7.4-10.4); MONOCYTES 9.7 % (2-11); NEUTROPHILS 84.1 % (40-80); RBC 4.38 10x6/uL (4.00-5.40)
[2017-12-21 05:35] LABS: PLATELET COUNT 230 10x3/uL (130-400)
[2017-12-21 05:47] LABS: ANION GAP 14.6 mmol/L (8-16); CALCIUM 8.4 mg/dL (8.5-10.1); CARBON DIOXIDE 27.4 mmol/L (21.0-32.0); CREATININE - SERUM 0.9 mg/dL (0.6-1.3)
[2017-12-21 09:29] LABS: APTT 21.5 SECONDS (22.8-39.4); INR 1.13 (0.85-1.17); PROTIME 14.1 SECONDS (11.6-15.0)
[2017-12-22] VITALS (28 sets, daily range): BP systolic 114–185; BP diastolic 45–76; Ht 162.6 cm; Wt 73.8 kg
[2017-12-22 05:07] LABS: BASOPHILS 0.1 % (0-2); EOSINOPHILS 0 % (0-7); IMMATURE GRANULOCYTES 0.9 % (0-5); LYMPHOCYTES 10.1 % (15-50); MCH 28.9 pg (26.0-34.0); MCHC 32.6 g/dL (31.0-37.0); MCV 88.9 fL (80.0-100.0); MEAN PLATELET VOLUME 10.5 fL (7.4-10.4); MONOCYTES 11.1 % (2-11); NEUTROPHILS 77.8 % (40-80); RDW 14.3 % (11.5-14.5); WBC 11.3 10x3/uL (4.8-10.8)
[2017-12-22 05:15] LABS: HEMATOCRIT 30.4 % (36.0-48.0); HEMOGLOBIN 9.9 g/dL (12-16); PLATELET COUNT 164 10x3/uL (130-400); RBC 3.42 10x6/uL (4.00-5.40)
[2017-12-22 05:22] LABS: CALC OSMOLALITY 302 mosm/kg (275-300); CALCIUM 7.4 mg/dL (8.5-10.1); CHLORIDE - SERUM 113 mmol/L (98-107); CREATININE - SERUM 0.7 mg/dL (0.6-1.3); GLUCOSE 228 mg/dL (74-106); PHENYTOIN (DILANTIN) 10.1 ug/mL (10.0-20.0); POTASSIUM - SERUM 3.4 mmol/L (3.5-5.1); SODIUM 147 mmol/L (136-145); UREA NITROGEN 23 mg/dL (7-18); eGFR NON AFRICAN AMERICAN 88 mL/min (90-120)
[2017-12-23] VITALS (24 sets, daily range): BP systolic 113–157; BP diastolic 35–71
[2017-12-23 05:31] LABS: BASOPHILS 0 % (0-2); EOSINOPHILS 0 % (0-7); HEMATOCRIT 31.4 % (36.0-48.0); HEMOGLOBIN 10.1 g/dL (12-16); IMMATURE GRANULOCYTES 0.5 % (0-5); LYMPHOCYTES 15.3 % (15-50); MCH 28.9 pg (26.0-34.0); MCHC 32.2 g/dL (31.0-37.0); MEAN PLATELET VOLUME 10.9 fL (7.4-10.4); MONOCYTES 6.6 % (2-11); NEUTROPHILS 77.6 % (40-80); PLATELET COUNT 174 10x3/uL (130-400); RBC 3.49 10x6/uL (4.00-5.40); RDW 14.4 % (11.5-14.5); WBC 9.6 10x3/uL (4.8-10.8)
[2017-12-23 05:41] LABS: ALBUMIN 2.3 g/dL (3.4-5.0); ALKALINE PHOSPHATASE 40 U/L (46-116); ALT (SGPT) 35 U/L (10-68); CALC OSMOLALITY 298 mosm/kg (275-300); CALCIUM 8.2 mg/dL (8.5-10.1); CHLORIDE - SERUM 110 mmol/L (98-107); CREATININE - SERUM 0.6 mg/dL (0.6-1.3); GLUCOSE 261 mg/dL (74-106); MAGNESIUM - SERUM 2.2 mg/dL (1.8-2.4); POTASSIUM - SERUM 3.3 mmol/L (3.5-5.1); PROTEIN - SERUM 5.8 g/dL (6.4-8.2); SODIUM 144 mmol/L (136-145); UREA NITROGEN 22 mg/dL (7-18); eGFR NON AFRICAN AMERICAN > 90 mL/min (90-120)
[2017-12-23 05:42] LABS: BILIRUBIN - TOTAL 0.26 mg/dL (0.2-1.3); CARBON DIOXIDE 25.4 mmol/L (21.0-32.0)
[2017-12-24] VITALS (27 sets, daily range): BP systolic 124–182; BP diastolic 51–67
[2017-12-24 05:03] LABS: CALC OSMOLALITY 299 mosm/kg (275-300); CALCIUM 7.8 mg/dL (8.5-10.1); CARBON DIOXIDE 28.1 mmol/L (21.0-32.0); CHLORIDE - SERUM 110 mmol/L (98-107); GLUCOSE 301 mg/dL (74-106); MAGNESIUM - SERUM 2.1 mg/dL (1.8-2.4); POTASSIUM - SERUM 3.8 mmol/L (3.5-5.1); SODIUM 143 mmol/L (136-145); UREA NITROGEN 25 mg/dL (7-18); eGFR NON AFRICAN AMERICAN 75 mL/min (90-120)
[2017-12-24 05:06] LABS: BASOPHILS 0 % (0-2); CREATININE - SERUM 0.8 mg/dL (0.6-1.3); EOSINOPHILS 0 % (0-7); HEMATOCRIT 28.1 % (36.0-48.0); IMMATURE GRANULOCYTES 0.2 % (0-5); LYMPHOCYTES 17.2 % (15-50); MCH 28.8 pg (26.0-34.0); MCV 90.1 fL (80.0-100.0); MEAN PLATELET VOLUME 10.6 fL (7.4-10.4); MONOCYTES 5.4 % (2-11); NEUTROPHILS 77.2 % (40-80); PLATELET COUNT 151 10x3/uL (130-400); RBC 3.12 10x6/uL (4.00-5.40); RDW 14.5 % (11.5-14.5); WBC 11.2 10x3/uL (4.8-10.8)
[2017-12-25] VITALS (25 sets, daily range): BP systolic 125–167; BP diastolic 53–78
[2017-12-25 04:21] LABS: CALC OSMOLALITY 292 mosm/kg (275-300); CALCIUM 8.6 mg/dL (8.5-10.1); CHLORIDE - SERUM 105 mmol/L (98-107); CREATININE - SERUM 0.6 mg/dL (0.6-1.3); GLUCOSE 286 mg/dL (74-106); POTASSIUM - SERUM 3.9 mmol/L (3.5-5.1); SODIUM 140 mmol/L (136-145); UREA NITROGEN 23 mg/dL (7-18); eGFR NON AFRICAN AMERICAN > 90 mL/min (90-120)
[2017-12-25 04:23] LABS: BASOPHILS 0.1 % (0-2); EOSINOPHILS 0.3 % (0-7); HEMATOCRIT 29.1 % (36.0-48.0); HEMOGLOBIN 9.5 g/dL (12-16); IMMATURE GRANULOCYTES 0.7 % (0-5); LYMPHOCYTES 16.7 % (15-50); MCH 29.2 pg (26.0-34.0); MCHC 32.6 g/dL (31.0-37.0); MCV 89.5 fL (80.0-100.0); MEAN PLATELET VOLUME 10.4 fL (7.4-10.4); MONOCYTES 5.4 % (2-11); NEUTROPHILS 76.8 % (40-80); PLATELET COUNT 163 10x3/uL (130-400); RBC 3.25 10x6/uL (4.00-5.40); WBC 10.7 10x3/uL (4.8-10.8)
[2017-12-26] VITALS (25 sets, daily range): BP systolic 127–157; BP diastolic 55–73
[2017-12-26 06:02] LABS: BASOPHILS 0 % (0-2); EOSINOPHILS 0.6 % (0-7); HEMATOCRIT 31.1 % (36.0-48.0); HEMOGLOBIN 10.2 g/dL (12-16); IMMATURE GRANULOCYTES 0.8 % (0-5); LYMPHOCYTES 19.9 % (15-50); MCH 28.6 pg (26.0-34.0); MCHC 32.8 g/dL (31.0-37.0); MEAN PLATELET VOLUME 10.7 fL (7.4-10.4); MONOCYTES 7.2 % (2-11); NEUTROPHILS 71.5 % (40-80); RBC 3.57 10x6/uL (4.00-5.40); RDW 13.7 % (11.5-14.5); WBC 12.1 10x3/uL (4.8-10.8)
[2017-12-26 06:08] LABS: MCV 87.1 fL (80.0-100.0); PLATELET COUNT 199 10x3/uL (130-400)
[2017-12-26 06:24] LABS: CALC OSMOLALITY 293 mosm/kg (275-300); CALCIUM 8.9 mg/dL (8.5-10.1); CARBON DIOXIDE 30.4 mmol/L (21.0-32.0); CHLORIDE - SERUM 100 mmol/L (98-107); CREATININE - SERUM 0.8 mg/dL (0.6-1.3); GLUCOSE 348 mg/dL (74-106); MAGNESIUM - SERUM 1.9 mg/dL (1.8-2.4); POTASSIUM - SERUM 3.6 mmol/L (3.5-5.1); SODIUM 138 mmol/L (136-145); UREA NITROGEN 23 mg/dL (7-18); eGFR NON AFRICAN AMERICAN 75 mL/min (90-120)
[2017-12-27] VITALS (25 sets, daily range): BP systolic 120–160; BP diastolic 6–72
[2017-12-27 05:51] LABS: BASOPHILS 0.1 % (0-2); EOSINOPHILS 0.6 % (0-7); HEMOGLOBIN 10.3 g/dL (12-16); IMMATURE GRANULOCYTES 0.8 % (0-5); MCH 28.9 pg (26.0-34.0); MCHC 33.2 g/dL (31.0-37.0); MCV 87.1 fL (80.0-100.0); MEAN PLATELET VOLUME 10.1 fL (7.4-10.4); MONOCYTES 8.7 % (2-11); NEUTROPHILS 70.8 % (40-80); PLATELET COUNT 208 10x3/uL (130-400); RBC 3.56 10x6/uL (4.00-5.40); RDW 13.5 % (11.5-14.5); WBC 12.1 10x3/uL (4.8-10.8)
[2017-12-27 06:24] LABS: CALC OSMOLALITY 289 mosm/kg (275-300); CALCIUM 9.2 mg/dL (8.5-10.1); CARBON DIOXIDE 29.7 mmol/L (21.0-32.0); CHLORIDE - SERUM 98 mmol/L (98-107); CREATININE - SERUM 0.8 mg/dL (0.6-1.3); GLUCOSE 337 mg/dL (74-106); POTASSIUM - SERUM 3.5 mmol/L (3.5-5.1); SODIUM 136 mmol/L (136-145); UREA NITROGEN 27 mg/dL (7-18); eGFR NON AFRICAN AMERICAN 75 mL/min (90-120)
[2017-12-27 06:53] LABS: MAGNESIUM - SERUM 1.9 mg/dL (1.8-2.4)
[2017-12-28] VITALS (24 sets, daily range): BP systolic 116–156; BP diastolic 47–71
[2017-12-28 06:17] LABS: BASOPHILS 0.1 % (0-2); EOSINOPHILS 0.7 % (0-7); HEMATOCRIT 29.2 % (36.0-48.0); HEMOGLOBIN 9.7 g/dL (12-16); IMMATURE GRANULOCYTES 1.4 % (0-5); LYMPHOCYTES 21.9 % (15-50); MCHC 33.2 g/dL (31.0-37.0); MCV 87.2 fL (80.0-100.0); MEAN PLATELET VOLUME 10.3 fL (7.4-10.4); MONOCYTES 8.9 % (2-11); PLATELET COUNT 220 10x3/uL (130-400); RBC 3.35 10x6/uL (4.00-5.40); RDW 13.7 % (11.5-14.5); WBC 11.2 10x3/uL (4.8-10.8)
[2017-12-28 06:46] LABS: CALC OSMOLALITY 284 mosm/kg (275-300); CARBON DIOXIDE 31.1 mmol/L (21.0-32.0); CHLORIDE - SERUM 96 mmol/L (98-107); CREATININE - SERUM 0.7 mg/dL (0.6-1.3); GLUCOSE 331 mg/dL (74-106); MAGNESIUM - SERUM 2.1 mg/dL (1.8-2.4); POTASSIUM - SERUM 3.5 mmol/L (3.5-5.1); SODIUM 134 mmol/L (136-145); UREA NITROGEN 25 mg/dL (7-18); eGFR NON AFRICAN AMERICAN 88 mL/min (90-120)
[2017-12-29] VITALS (23 sets, daily range): BP systolic 113–151; BP diastolic 54–74
[2017-12-29 04:33] LABS: BASOPHILS 0.1 % (0-2); EOSINOPHILS 0.4 % (0-7); HEMATOCRIT 27.2 % (36.0-48.0); IMMATURE GRANULOCYTES 0.9 % (0-5); LYMPHOCYTES 15.6 % (15-50); MCH 28.8 pg (26.0-34.0); MCHC 33.1 g/dL (31.0-37.0); MCV 87.2 fL (80.0-100.0); MONOCYTES 6.7 % (2-11); NEUTROPHILS 76.3 % (40-80); PLATELET COUNT 216 10x3/uL (130-400); RBC 3.12 10x6/uL (4.00-5.40); RDW 13.6 % (11.5-14.5); WBC 10.5 10x3/uL (4.8-10.8)
[2017-12-29 04:44] LABS: CALC OSMOLALITY 279 mosm/kg (275-300); CALCIUM 8.5 mg/dL (8.5-10.1); CARBON DIOXIDE 33.2 mmol/L (21.0-32.0); CHLORIDE - SERUM 98 mmol/L (98-107); CREATININE - SERUM 0.6 mg/dL (0.6-1.3); GLUCOSE 284 mg/dL (74-106); MAGNESIUM - SERUM 2.1 mg/dL (1.8-2.4); PHOSPHOROUS 3.3 mg/dL (2.5-4.9); POTASSIUM - SERUM 3.8 mmol/L (3.5-5.1); SODIUM 133 mmol/L (136-145); UREA NITROGEN 24 mg/dL (7-18); eGFR NON AFRICAN AMERICAN > 90 mL/min (90-120)
[2017-12-30] VITALS (34 sets, daily range): BP systolic 58–223; BP diastolic 16–113
[2017-12-30 05:25] LABS: BASOPHILS 0.1 % (0-2); EOSINOPHILS 0.4 % (0-7); HEMATOCRIT 29.1 % (36.0-48.0); HEMOGLOBIN 9.5 g/dL (12-16); IMMATURE GRANULOCYTES 1.1 % (0-5); LYMPHOCYTES 14.7 % (15-50); MCH 28.6 pg (26.0-34.0); MCHC 32.6 g/dL (31.0-37.0); MCV 87.7 fL (80.0-100.0); MEAN PLATELET VOLUME 9.8 fL (7.4-10.4); MONOCYTES 5.9 % (2-11); NEUTROPHILS 77.8 % (40-80); PLATELET COUNT 244 10x3/uL (130-400); RBC 3.32 10x6/uL (4.00-5.40); RDW 13.7 % (11.5-14.5); WBC 11.2 10x3/uL (4.8-10.8)
[2017-12-30 05:45] LABS: ALKALINE PHOSPHATASE 65 U/L (46-116); ALT (SGPT) 20 U/L (10-68); CALC OSMOLALITY 282 mosm/kg (275-300); CALCIUM 8.4 mg/dL (8.5-10.1); CARBON DIOXIDE 32.9 mmol/L (21.0-32.0); CHLORIDE - SERUM 97 mmol/L (98-107); CREATININE - SERUM 0.7 mg/dL (0.6-1.3); GLUCOSE 240 mg/dL (74-106); PHOSPHOROUS 3.3 mg/dL (2.5-4.9); POTASSIUM - SERUM 3.5 mmol/L (3.5-5.1); SODIUM 136 mmol/L (136-145); UREA NITROGEN 22 mg/dL (7-18); eGFR NON AFRICAN AMERICAN 88 mL/min (90-120)
[2017-12-31] VITALS (24 sets, daily range): BP systolic 115–148; BP diastolic 52–85
[2017-12-31 06:33] LABS: CALC OSMOLALITY 283 mosm/kg (275-300); CALCIUM 8.7 mg/dL (8.5-10.1); CARBON DIOXIDE 30.2 mmol/L (21.0-32.0); CHLORIDE - SERUM 97 mmol/L (98-107); CREATININE - SERUM 0.7 mg/dL (0.6-1.3); GLUCOSE 268 mg/dL (74-106); PHOSPHOROUS 3.5 mg/dL (2.5-4.9); POTASSIUM - SERUM 3.3 mmol/L (3.5-5.1); SODIUM 136 mmol/L (136-145); UREA NITROGEN 22 mg/dL (7-18); eGFR NON AFRICAN AMERICAN 88 mL/min (90-120)
[2017-12-31 06:53] LABS: BASOPHILS 0.1 % (0-2); EOSINOPHILS 0.1 % (0-7); HEMATOCRIT 28.6 % (36.0-48.0); HEMOGLOBIN 9.4 g/dL (12-16); IMMATURE GRANULOCYTES 0.8 % (0-5); LYMPHOCYTES 19.3 % (15-50); MCH 28.6 pg (26.0-34.0); MCHC 32.9 g/dL (31.0-37.0); MCV 86.9 fL (80.0-100.0); MONOCYTES 5.6 % (2-11); NEUTROPHILS 74.1 % (40-80); PLATELET COUNT 271 10x3/uL (130-400); RBC 3.29 10x6/uL (4.00-5.40)
[2018-01-01] VITALS (24 sets, daily range): BP systolic 112–150; BP diastolic 43–74
[2018-01-01 05:30] LABS: BASOPHILS 0 % (0-2); EOSINOPHILS 0.2 % (0-7); HEMATOCRIT 26.3 % (36.0-48.0); HEMOGLOBIN 8.4 g/dL (12-16); IMMATURE GRANULOCYTES 0.7 % (0-5); LYMPHOCYTES 16.7 % (15-50); MCH 28.1 pg (26.0-34.0); MCHC 31.9 g/dL (31.0-37.0); MEAN PLATELET VOLUME 9.9 fL (7.4-10.4); MONOCYTES 4.6 % (2-11); NEUTROPHILS 77.8 % (40-80); PLATELET COUNT 242 10x3/uL (130-400); RBC 2.99 10x6/uL (4.00-5.40); RDW 13.9 % (11.5-14.5); WBC 10.1 10x3/uL (4.8-10.8)
[2018-01-01 05:58] LABS: ALBUMIN 1.8 g/dL (3.4-5.0); ALKALINE PHOSPHATASE 66 U/L (46-116); ALT (SGPT) 20 U/L (10-68); CALC OSMOLALITY 281 mosm/kg (275-300); CALCIUM 8.6 mg/dL (8.5-10.1); CHLORIDE - SERUM 102 mmol/L (98-107); GLUCOSE 259 mg/dL (74-106); MAGNESIUM - SERUM 2.1 mg/dL (1.8-2.4); PHOSPHOROUS 3.6 mg/dL (2.5-4.9); POTASSIUM - SERUM 4.4 mmol/L (3.5-5.1); PROTEIN - SERUM 5.4 g/dL (6.4-8.2); SODIUM 135 mmol/L (136-145); UREA NITROGEN 22 mg/dL (7-18)
[2018-01-01 06:02] LABS: CREATININE - SERUM 0.5 mg/dL (0.6-1.3); eGFR NON AFRICAN AMERICAN > 90 mL/min (90-120)
[2018-01-02] VITALS (25 sets, daily range): BP systolic 116–159; BP diastolic 46–73
[2018-01-02 06:35] LABS: BASOPHILS 0 % (0-2); EOSINOPHILS 0.5 % (0-7); HEMATOCRIT 23.8 % (36.0-48.0); HEMOGLOBIN 7.6 g/dL (12-16); IMMATURE GRANULOCYTES 0.5 % (0-5); MCH 28.3 pg (26.0-34.0); MCHC 31.9 g/dL (31.0-37.0); MCV 88.5 fL (80.0-100.0); MEAN PLATELET VOLUME 9.8 fL (7.4-10.4); MONOCYTES 3.9 % (2-11); NEUTROPHILS 75.1 % (40-80); PLATELET COUNT 247 10x3/uL (130-400); RBC 2.69 10x6/uL (4.00-5.40); RDW 14.3 % (11.5-14.5); WBC 9.2 10x3/uL (4.8-10.8)
[2018-01-02 06:47] LABS: ALBUMIN 2.2 g/dL (3.4-5.0); ALKALINE PHOSPHATASE 62 U/L (46-116); ALT (SGPT) 21 U/L (10-68); CALC OSMOLALITY 289 mosm/kg (275-300); CALCIUM 8.6 mg/dL (8.5-10.1); CARBON DIOXIDE 28.9 mmol/L (21.0-32.0); CHLORIDE - SERUM 105 mmol/L (98-107); CREATININE - SERUM 0.5 mg/dL (0.6-1.3); GLUCOSE 239 mg/dL (74-106); POTASSIUM - SERUM 4.1 mmol/L (3.5-5.1); PROTEIN - SERUM 5.4 g/dL (6.4-8.2); SODIUM 139 mmol/L (136-145); UREA NITROGEN 23 mg/dL (7-18); eGFR NON AFRICAN AMERICAN > 90 mL/min (90-120)
[2018-01-03] VITALS (29 sets, daily range): BP systolic 110–164; BP diastolic 41–588
[2018-01-03 05:37] LABS: BASOPHILS 0 % (0-2); EOSINOPHILS 0.3 % (0-7); IMMATURE GRANULOCYTES 0.5 % (0-5); LYMPHOCYTES 16.4 % (15-50); MCH 28.7 pg (26.0-34.0); MCHC 32.4 g/dL (31.0-37.0); MCV 88.4 fL (80.0-100.0); MEAN PLATELET VOLUME 9.7 fL (7.4-10.4); MONOCYTES 4.7 % (2-11); NEUTROPHILS 78.1 % (40-80); PLATELET COUNT 241 10x3/uL (130-400); RDW 14.4 % (11.5-14.5); WBC 10.1 10x3/uL (4.8-10.8)
[2018-01-03 05:38] LABS: HEMOGLOBIN 9.4 g/dL (12-16); RBC 3.28 10x6/uL (4.00-5.40)
[2018-01-03 05:48] LABS: CALC OSMOLALITY 288 mosm/kg (275-300); CALCIUM 9.1 mg/dL (8.5-10.1); CARBON DIOXIDE 28.7 mmol/L (21.0-32.0); CHLORIDE - SERUM 107 mmol/L (98-107); CREATININE - SERUM 0.5 mg/dL (0.6-1.3); SODIUM 141 mmol/L (136-145); UREA NITROGEN 23 mg/dL (7-18); eGFR NON AFRICAN AMERICAN > 90 mL/min (90-120)
[2018-01-03 05:50] LABS: GLUCOSE 162 mg/dL (74-106)
[2018-01-04] VITALS (27 sets, daily range): BP systolic 103–170; BP diastolic 46–87
[2018-01-04 05:38] LABS: BASOPHILS 0.1 % (0-2); EOSINOPHILS 0.3 % (0-7); HEMATOCRIT 29.4 % (36.0-48.0); HEMOGLOBIN 9.5 g/dL (12-16); IMMATURE GRANULOCYTES 0.4 % (0-5); LYMPHOCYTES 18.6 % (15-50); MCH 28.6 pg (26.0-34.0); MCHC 32.3 g/dL (31.0-37.0); MCV 88.6 fL (80.0-100.0); MEAN PLATELET VOLUME 10.2 fL (7.4-10.4); MONOCYTES 5.7 % (2-11); NEUTROPHILS 74.9 % (40-80); PLATELET COUNT 268 10x3/uL (130-400); RBC 3.32 10x6/uL (4.00-5.40); WBC 9.5 10x3/uL (4.8-10.8)
[2018-01-04 05:47] LABS: CALC OSMOLALITY 292 mosm/kg (275-300); CALCIUM 8.8 mg/dL (8.5-10.1); CARBON DIOXIDE 27.7 mmol/L (21.0-32.0); CHLORIDE - SERUM 104 mmol/L (98-107); CREATININE - SERUM 0.5 mg/dL (0.6-1.3); POTASSIUM - SERUM 3.9 mmol/L (3.5-5.1); SODIUM 141 mmol/L (136-145); UREA NITROGEN 23 mg/dL (7-18); eGFR NON AFRICAN AMERICAN > 90 mL/min (90-120)
[2018-01-04 05:52] LABS: GLUCOSE 239 mg/dL (74-106)
[2018-01-05] VITALS (13 sets, daily range): BP systolic 108–134; BP diastolic 45–81
[2018-01-05 05:53] LABS: BASOPHILS 0.2 % (0-2); EOSINOPHILS 0.8 % (0-7); HEMATOCRIT 29.4 % (36.0-48.0); HEMOGLOBIN 9.4 g/dL (12-16); IMMATURE GRANULOCYTES 0.6 % (0-5); LYMPHOCYTES 16.3 % (15-50); MCH 28.4 pg (26.0-34.0); MCV 88.8 fL (80.0-100.0); MEAN PLATELET VOLUME 10.3 fL (7.4-10.4); NEUTROPHILS 75.1 % (40-80); PLATELET COUNT 215 10x3/uL (130-400); RBC 3.31 10x6/uL (4.00-5.40); RDW 14.2 % (11.5-14.5)
[2018-01-05 06:07] LABS: WBC 6.3 10x3/uL (4.8-10.8)
[2018-01-05 06:15] LABS: ALBUMIN 2.9 g/dL (3.4-5.0); ALKALINE PHOSPHATASE 69 U/L (46-116); ALT (SGPT) 21 U/L (10-68); CALC OSMOLALITY 295 mosm/kg (275-300); CHLORIDE - SERUM 106 mmol/L (98-107); CREATININE - SERUM 0.5 mg/dL (0.6-1.3); GLUCOSE 225 mg/dL (74-106); POTASSIUM - SERUM 3.8 mmol/L (3.5-5.1); SODIUM 143 mmol/L (136-145); UREA NITROGEN 25 mg/dL (7-18); eGFR NON AFRICAN AMERICAN > 90 mL/min (90-120)
[2018-01-06] VITALS (25 sets, daily range): BP systolic 93–134; BP diastolic 43–80
[2018-01-06 05:33] LABS: BASOPHILS 0.1 % (0-2); EOSINOPHILS 0.1 % (0-7); HEMATOCRIT 29.3 % (36.0-48.0); HEMOGLOBIN 9.3 g/dL (12-16); IMMATURE GRANULOCYTES 0.4 % (0-5); LYMPHOCYTES 10.1 % (15-50); MCH 28.3 pg (26.0-34.0); MCHC 31.7 g/dL (31.0-37.0); MCV 89.1 fL (80.0-100.0); MEAN PLATELET VOLUME 10.8 fL (7.4-10.4); NEUTROPHILS 80.3 % (40-80); PLATELET COUNT 222 10x3/uL (130-400); RBC 3.29 10x6/uL (4.00-5.40); RDW 14.2 % (11.5-14.5)
[2018-01-06 05:55] LABS: CALC OSMOLALITY 296 mosm/kg (275-300); CALCIUM 9.2 mg/dL (8.5-10.1); CARBON DIOXIDE 27.6 mmol/L (21.0-32.0); CHLORIDE - SERUM 105 mmol/L (98-107); CREATININE - SERUM 0.5 mg/dL (0.6-1.3); GLUCOSE 248 mg/dL (74-106); MAGNESIUM - SERUM 2.2 mg/dL (1.8-2.4); POTASSIUM - SERUM 4.3 mmol/L (3.5-5.1); SODIUM 142 mmol/L (136-145); UREA NITROGEN 28 mg/dL (7-18); eGFR NON AFRICAN AMERICAN > 90 mL/min (90-120)
[2018-01-07] VITALS (24 sets, daily range): BP systolic 93–139; BP diastolic 47–93
[2018-01-07 05:55] LABS: BASOPHILS 0.1 % (0-2); EOSINOPHILS 0.1 % (0-7); HEMATOCRIT 26.6 % (36.0-48.0); HEMOGLOBIN 8.3 g/dL (12-16); IMMATURE GRANULOCYTES 0.4 % (0-5); LYMPHOCYTES 19.6 % (15-50); MCH 27.9 pg (26.0-34.0); MCHC 31.2 g/dL (31.0-37.0); MCV 89.6 fL (80.0-100.0); MEAN PLATELET VOLUME 10.3 fL (7.4-10.4); MONOCYTES 5.6 % (2-11); NEUTROPHILS 74.2 % (40-80); RBC 2.97 10x6/uL (4.00-5.40); RDW 14.3 % (11.5-14.5); WBC 7.5 10x3/uL (4.8-10.8)
[2018-01-07 06:02] LABS: PLATELET COUNT 175 10x3/uL (130-400)
[2018-01-07 06:10] LABS: CALC OSMOLALITY 302 mosm/kg (275-300); CALCIUM 9.2 mg/dL (8.5-10.1); CHLORIDE - SERUM 108 mmol/L (98-107); CREATININE - SERUM 0.6 mg/dL (0.6-1.3); POTASSIUM - SERUM 4.3 mmol/L (3.5-5.1); SODIUM 142 mmol/L (136-145); UREA NITROGEN 34 mg/dL (7-18); eGFR NON AFRICAN AMERICAN > 90 mL/min (90-120)
[2018-01-07 06:16] LABS: GLUCOSE 308 mg/dL (74-106)
[2018-01-08] VITALS (23 sets, daily range): BP systolic 108–152; BP diastolic 58–129
[2018-01-08 04:27] LABS: BASOPHILS 0 % (0-2); EOSINOPHILS 0.6 % (0-7); HEMATOCRIT 26.9 % (36.0-48.0); HEMOGLOBIN 8.5 g/dL (12-16); IMMATURE GRANULOCYTES 0.4 % (0-5); LYMPHOCYTES 22.4 % (15-50); MCH 28.5 pg (26.0-34.0); MCHC 31.6 g/dL (31.0-37.0); MCV 90.3 fL (80.0-100.0); MEAN PLATELET VOLUME 10.6 fL (7.4-10.4); MONOCYTES 5.6 % (2-11); PLATELET COUNT 195 10x3/uL (130-400); RBC 2.98 10x6/uL (4.00-5.40); RDW 14.1 % (11.5-14.5); WBC 7.1 10x3/uL (4.8-10.8)
[2018-01-08 04:43] LABS: CALC OSMOLALITY 306 mosm/kg (275-300); CALCIUM 9.3 mg/dL (8.5-10.1); CARBON DIOXIDE 30.2 mmol/L (21.0-32.0); CHLORIDE - SERUM 108 mmol/L (98-107); CREATININE - SERUM 0.5 mg/dL (0.6-1.3); GLUCOSE 262 mg/dL (74-106); POTASSIUM - SERUM 3.8 mmol/L (3.5-5.1); SODIUM 145 mmol/L (136-145); UREA NITROGEN 38 mg/dL (7-18); eGFR NON AFRICAN AMERICAN > 90 mL/min (90-120)
[2018-01-09] VITALS (23 sets, daily range): BP systolic 75–186; BP diastolic 45–87
[2018-01-09 05:46] LABS: BASOPHILS 0.3 % (0-2); HEMATOCRIT 29.2 % (36.0-48.0); HEMOGLOBIN 9.1 g/dL (12-16); IMMATURE GRANULOCYTES 0.8 % (0-5); LYMPHOCYTES 26.8 % (15-50); MCH 27.9 pg (26.0-34.0); MCHC 31.2 g/dL (31.0-37.0); MCV 89.6 fL (80.0-100.0); MEAN PLATELET VOLUME 10.7 fL (7.4-10.4); MONOCYTES 7.8 % (2-11); NEUTROPHILS 61.3 % (40-80); PLATELET COUNT 203 10x3/uL (130-400); RBC 3.26 10x6/uL (4.00-5.40); RDW 14.3 % (11.5-14.5); WBC 6.4 10x3/uL (4.8-10.8)
[2018-01-09 06:14] LABS: ALBUMIN 3.3 g/dL (3.4-5.0); ALKALINE PHOSPHATASE 70 U/L (46-116); ALT (SGPT) 44 U/L (10-68); BILIRUBIN - TOTAL 0.26 mg/dL (0.2-1.3); CALC OSMOLALITY 302 mosm/kg (275-300); CARBON DIOXIDE 28.8 mmol/L (21.0-32.0); CHLORIDE - SERUM 107 mmol/L (98-107); CREATININE - SERUM 0.4 mg/dL (0.6-1.3); PHOSPHOROUS 3.3 mg/dL (2.5-4.9); POTASSIUM - SERUM 4.1 mmol/L (3.5-5.1); SODIUM 145 mmol/L (136-145); UREA NITROGEN 35 mg/dL (7-18); eGFR NON AFRICAN AMERICAN > 90 mL/min (90-120)
[2018-01-09 06:15] LABS: GLUCOSE 203 mg/dL (74-106)
[2018-01-10] VITALS (24 sets, daily range): BP systolic 109–161; BP diastolic 53–78
[2018-01-10 05:21] LABS: BASOPHILS 0.3 % (0-2); EOSINOPHILS 3.4 % (0-7); HEMATOCRIT 30.6 % (36.0-48.0); HEMOGLOBIN 9.5 g/dL (12-16); IMMATURE GRANULOCYTES 1.2 % (0-5); LYMPHOCYTES 22.6 % (15-50); MCH 27.9 pg (26.0-34.0); MCV 89.7 fL (80.0-100.0); MEAN PLATELET VOLUME 10.3 fL (7.4-10.4); NEUTROPHILS 65.5 % (40-80); PLATELET COUNT 185 10x3/uL (130-400); RBC 3.41 10x6/uL (4.00-5.40); RDW 14.1 % (11.5-14.5); WBC 6.8 10x3/uL (4.8-10.8)
[2018-01-10 05:40] LABS: CALCIUM 9.1 mg/dL (8.5-10.1); CARBON DIOXIDE 26.6 mmol/L (21.0-32.0); CHLORIDE - SERUM 110 mmol/L (98-107); GLUCOSE 229 mg/dL (74-106); POTASSIUM - SERUM 3.9 mmol/L (3.5-5.1); SODIUM 143 mmol/L (136-145)
[2018-01-10 05:42] LABS: CALC OSMOLALITY 296 mosm/kg (275-300); CREATININE - SERUM 0.6 mg/dL (0.6-1.3); UREA NITROGEN 26 mg/dL (7-18); eGFR NON AFRICAN AMERICAN > 90 mL/min (90-120)
[2018-01-11] VITALS (23 sets, daily range): BP systolic 125–188; BP diastolic 54–96
[2018-01-11 04:23] LABS: BASOPHILS 0.1 % (0-2); EOSINOPHILS 2.3 % (0-7); HEMATOCRIT 30.6 % (36.0-48.0); HEMOGLOBIN 9.6 g/dL (12-16); IMMATURE GRANULOCYTES 1.1 % (0-5); LYMPHOCYTES 22.4 % (15-50); MCH 27.9 pg (26.0-34.0); MCHC 31.4 g/dL (31.0-37.0); MEAN PLATELET VOLUME 10.8 fL (7.4-10.4); MONOCYTES 7.1 % (2-11); PLATELET COUNT 200 10x3/uL (130-400); RBC 3.44 10x6/uL (4.00-5.40); WBC 8.2 10x3/uL (4.8-10.8)
[2018-01-11 04:33] LABS: CALC OSMOLALITY 293 mosm/kg (275-300); CARBON DIOXIDE 28.2 mmol/L (21.0-32.0); CHLORIDE - SERUM 108 mmol/L (98-107); GLUCOSE 212 mg/dL (74-106); POTASSIUM - SERUM 3.9 mmol/L (3.5-5.1); SODIUM 143 mmol/L (136-145); UREA NITROGEN 22 mg/dL (7-18)
[2018-01-11 04:34] LABS: CREATININE - SERUM 0.4 mg/dL (0.6-1.3); eGFR NON AFRICAN AMERICAN > 90 mL/min (90-120)
[2018-01-12] VITALS (9 sets, daily range): BP systolic 130–146; BP diastolic 40–89
[2018-01-12 04:33] LABS: BASOPHILS 0.1 % (0-2); HEMATOCRIT 31.1 % (36.0-48.0); HEMOGLOBIN 9.8 g/dL (12-16); IMMATURE GRANULOCYTES 1.1 % (0-5); LYMPHOCYTES 20.8 % (15-50); MCH 27.8 pg (26.0-34.0); MCHC 31.5 g/dL (31.0-37.0); MCV 88.4 fL (80.0-100.0); MEAN PLATELET VOLUME 10.5 fL (7.4-10.4); MONOCYTES 7.6 % (2-11); NEUTROPHILS 68.4 % (40-80); PLATELET COUNT 200 10x3/uL (130-400); RBC 3.52 10x6/uL (4.00-5.40); RDW 14.3 % (11.5-14.5); WBC 8.9 10x3/uL (4.8-10.8)
[2018-01-12 04:53] LABS: CALC OSMOLALITY 286 mosm/kg (275-300); CALCIUM 9.2 mg/dL (8.5-10.1); CARBON DIOXIDE 25.8 mmol/L (21.0-32.0); CHLORIDE - SERUM 103 mmol/L (98-107); CREATININE - SERUM 0.5 mg/dL (0.6-1.3); GLUCOSE 232 mg/dL (74-106); SODIUM 139 mmol/L (136-145); UREA NITROGEN 19 mg/dL (7-18); eGFR NON AFRICAN AMERICAN > 90 mL/min (90-120)
== END 2018-01-12 12:05 | disposition short-term general hospital (02) | DRG 3 ==
LOC: D.ER 07:07 → D.CVICU 10:46 → D.ICU 10:46 → D.EDHOLD 10:46 → D.CVICU 11:03 → D.ICU 01-07 19:50
PROVIDERS: Family Medicine; Internal Medicine Pulmonary Disease; Neurological Surgery
PROC: 00B00ZZ Excision of Brain, Open Approach (ICD-10-PCS; 2017-12-20)
PROC: 0BH17EZ Insertion of Endotracheal Airway into Trachea, Via Natural or Artificial Opening (ICD-10-PCS; 2017-12-21)
PROC: 00C00ZZ Extirpation of Matter from Brain, Open Approach (ICD-10-PCS; 2017-12-21)
PROC: 5A1955Z Respiratory Ventilation, Greater than 96 Consecutive Hours (ICD-10-PCS; principal; 2017-12-21 10:00)
PROC: 0B113F4 Bypass Trachea to Cutaneous with Tracheostomy Device, Percutaneous Approach (ICD-10-PCS; 2017-12-30)
PROC: 0DH63UZ Insertion of Feeding Device into Stomach, Percutaneous Approach (ICD-10-PCS; 2017-12-30)
PROC: 05HY33Z Insertion of Infusion Device into Upper Vein, Percutaneous Approach (ICD-10-PCS; 2018-01-11)
DX: D49.6 Neoplasm of unspecified behavior of brain (principal); J96.00 Acute respiratory failure, unspecified whether with hypoxia or hypercapnia; I61.9 Nontraumatic intracerebral hemorrhage, unspecified; J15.5 Pneumonia due to Escherichia coli; G81.94 Hemiplegia, unspecified affecting left nondominant side; A04.72 Enterocolitis due to Clostridium difficile, not specified as recurrent; D72.829 Elevated white blood cell count, unspecified; E87.6 Hypokalemia; E11.9 Type 2 diabetes mellitus without complications; I10 Essential (primary) hypertension; Z85.3 Personal history of malignant neoplasm of breast; D64.9 Anemia, unspecified; Y95 Nosocomial condition; R41.82 Altered mental status, unspecified

== ENCOUNTER 2018-02-09 06:37 | Emergency (ER) | payer MEDICARE, OTHER ==
[~2018-02-09] VITALS: Ht 162.6 cm; Wt 70.0 kg
[2018-02-09 06:39] VITALS: Ht 162.6 cm; Wt 70.0 kg
[2018-02-09 07:42] VITALS: BP 157/79
== END 2018-02-09 08:31 ==
LOC: D.ER 06:37
DX: J95.09 Other tracheostomy complication (principal)